=== PATIENT | male | born 1985 | race Two or more races ===

== ENCOUNTER 2025-06-17 14:29 | Emergency (ER) | payer OTHER ==
[~2025-06-17] VITALS: Ht 172.7 cm; Wt 93.0 kg
[2025-06-17] MEDS ORDERED: ADDERALL 30 MG30 MG (15:16)
[2025-06-17] MEDS ORDERED: ESTAZOLAM2 MG (15:17)
[2025-06-17] MEDS ORDERED: PROZAC10 MG PO (15:21)
[2025-06-17] MEDS ORDERED: KETOROLAC TROMETHAMINE 60 MG VIAL IM ONE ×2 (17:30)
[2025-06-17] MEDS ORDERED: NORFLEX100MG PO (21:10)
== END 2025-06-17 21:25 | disposition home or self-care (01) ==
LOC: ER 14:29
DX: M25.572 Pain in left ankle and joints of left foot (principal); M76.62 Achilles tendinitis, left leg; M77.32 Calcaneal spur, left foot

== ENCOUNTER 2025-07-15 11:37 | Outpatient (CLI) | payer OTHER ==
[~2025-07-15 11:37] MED LIST: ADDERALL 30 MG30 MG; ESTAZOLAM2 MG; NORFLEX100MG PO; PROZAC10 MG PO
[2025-07-15 12:34] LABS: BASO % 1.0 % (0.1-1.2); EOS # 0.08 (0.04-0.54); EOS % 1.5 % (0.7-7.0); LYMPH # 1.67 (1.18-3.74); LYMPH % 32.2 % (19.3-53.1); MEAN PLATELET VOLUME 10.00 fl (9.4-12.4); MONO # 0.66 (0.24-0.82); NEUT # 2.72 (1.56-6.13); NEUT % 52.4 % (34.0-71.1); RED CELL DISTRIBUTION WIDTH 11.9 % (11.6-14.4)
[2025-07-15 12:44] LABS: MONO % 12.7 % (4.7-12.5)
[2025-07-15 12:58] LABS: INR 1.02
[2025-07-15 13:03] LABS: ALT/SGPT 174.0 U/L (12-78); AST/SGOT 134.0 U/L (15-37); BILIRUBIN TOTAL 1.06 mg/dL (0.3-1.2); BUN CREA RATIO 13.0 (7.0-25.0); CREATININE SERUM 0.7 mg/dL (0.70-1.30); GFR 124.28; GLOBULINA 3.3 G/DL (2.4-3.5); GLUCOSE FASTING 95.0 mg/dL (65-100); OSMOLALITY SERUM 276.0 MOSM/KG (275-295)
[2025-07-15 13:09] LABS: URINE APPEARANCE Clear; URINE BILIRRUBIN Negative (NEGATIVE); URINE BLOOD Negative; URINE COLOR Dark Yellow; URINE GLUCOSE Negative (NEGATIVE); URINE KETONE Trace (NEGATIVE); URINE LEUKOCYTE Small; URINE NITRATE Negative; URINE PROTEIN Trace (NEGATIVE); URINE UROBILINOGEN 1.0 E.U./dl
[2025-07-15 13:14] LABS: URINE BACTERIA 28.7 uL (0.0-1933); URINE EPITHELIAL CELLS 1.8 uL (0.0-38.8); URINE RBC 2.6 uL (0.0-20.8); URINE WBC 41.0 uL (0.0-23.2)
[2025-07-15 13:40] LABS: URINE CAST 0.00 uL (0.0-1.40)
[2025-07-15 14:00] LABS: COL EPI 140 SECONDS (82-175)
[2025-07-16] MEDS ORDERED: ADDERALL 30 MG30 MG PO (13:36)
== END 2025-07-15 11:46 | disposition home or self-care (01) ==
LOC: RAD 11:37
PROVIDERS: ATTEND Orthopaedic Surgery
DX: D64.9 Anemia, unspecified (principal); E88.89 Other specified metabolic disorders; D68.8 Other specified coagulation defects; N39.0 Urinary tract infection, site not specified; Z22.322 Carrier or suspected carrier of Methicillin resistant Staphylococcus aureus; E11.9 Type 2 diabetes mellitus without complications; Z76.89 Persons encountering health services in other specified circumstances

== ENCOUNTER 2025-07-20 07:00 | Day surgery (SDC) | payer OTHER ==
[2025-07-16 13:37] VITALS: BP 144/83
[~2025-07-20] VITALS: Ht 172.7 cm; Wt 93.0 kg
[~2025-07-20 07:00] MED LIST changes: +ADDERALL 30 MG30 MG PO
[2025-07-20] MEDS ORDERED: CEFAZOLIN SODIUM 1,000 MG VIAL ONE (08:13)
== END 2025-07-20 17:00 | disposition home or self-care (01) ==
LOC: CIR.AMB 07:00
PROVIDERS: ATTEND Orthopaedic Surgery
DX: M66.362 Spontaneous rupture of flexor tendons, left lower leg (principal)